=== PATIENT | female | born 1950 | race Caucasian/White ===

== ENCOUNTER 2022-09-22 11:01 | Day surgery (SDC) | payer MEDICARE ==
[2022-09-22] VITALS (7 sets, daily range): BP systolic 112–199; BP diastolic 52–160
[~2022-09-22] VITALS: Ht 162.6 cm; Wt 124.1 kg
[2022-09-22] MEDS ORDERED: LORazepam 0.5 MG tablet PO ONE (11:40)
[2022-09-22] MEDS ORDERED: normal saline 1000ml 1,000 ML IV SCH (11:40)
[2022-09-22] MEDS ORDERED: insulin Lispro (HumaLOG) vial - multi-dose SQ SCH (11:45)
[2022-09-22] MEDS ORDERED: glucagon, human recombinant 1mg kit SUBCUT PRN ×2 (11:45→13:20)
[2022-09-22] MEDS ORDERED: DEXTROSE 15 GM of carb/4 tabs (each vial/BOTTLE has 4 tablets) PO PRN ×4 (11:45→13:20)
[2022-09-22 12:14] LABS: BASOPHILS % (AUTO) 0.3 % (0-1); EOSINOPHILS # (AUTO) 0.3 X10'3 (0-0.9); EOSINOPHILS % (AUTO) 3.7 % (0-6); HEMATOCRIT 39.4 % (35.0-45.0); HEMOGLOBIN 12.9 g/dl (12.0-16.0); LYMPHOCYTES # (AUTO) 1.6 X10'3 (1.1-4.8); LYMPHOCYTES % (AUTO) 16.7 % (21-51); MEAN CORPUSCULAR HEMOGLOBIN 29.2 PG (27.0-31.0); MEAN CORPUSCULAR HGB CONC 32.7 g/dL (33.0-36.5); MEAN CORPUSCULAR VOLUME 89.3 FL (78-98); MEAN PLATELET VOLUME 7.3 FL (7.4-10.4); MONOCYTES # (AUTO) 0.9 X10'3 (0-0.9); MONOCYTES % (AUTO) 9.5 % (2-12); NEUTROPHILS # (AUTO) 6.6 X10'3 (1.8-7.7); NEUTROPHILS % (AUTO) 69.8 % (42-75); PLATELET COUNT 279 X10'3 (140-440); RED BLOOD COUNT 4.41 X10'6 (4.20-5.60); RED CELL DISTRIBUTION WIDTH 17.1 % (11.5-14.5); WHITE BLOOD COUNT 9.5 X10'3 (4.5-11.0)
[2022-09-22 12:28] LABS: ALBUMIN 3.2 G/DL (3.4-5.0); ANION GAP 9 (8-16); BLOOD UREA NITROGEN 26 MG/DL (7-18); BUN/CREATININE RATIO 17.2 (6.6-38.0); CALCIUM 9.6 MG/DL (8.5-10.1); CHLORIDE 105 MMOL/L (99-107); CREATININE 1.51 MG/DL (0.40-0.90); GLUCOSE 76 MG/DL (70-104); POTASSIUM 4.2 MMOL/L (3.5-5.1); SODIUM 142 MMOL/L (135-145); TOTAL CARBON DIOXIDE 28.1 MMOL/L (24-32); eGFR 34 ML/MIN
[2022-09-22 12:30] LABS: APTT 26 SECONDS (22-32)
[2022-09-22] MEDS ORDERED: LIDOcaine 1% 30ml preserv. free vial ONE (12:51)
[2022-09-22] MEDS ORDERED: midazolam 1 mg/ML 2ml injection ONE (12:51)
[2022-09-22] MEDS ORDERED: iohexol 350 MG/ML 50ML vial IV ONE (12:51)
[2022-09-22] MEDS ORDERED: fentaNYL/PF 50MCG/1 ML 2ML syringe ONE (12:51)
[2022-09-22] MEDS ORDERED: EMPA10TA PO (12:55)
[2022-09-22] MEDS ORDERED: GLIP5TAB13 PO ×2 (12:55)
[2022-09-22] MEDS ORDERED: METF-438 PO (12:55)
[2022-09-22] MEDS ORDERED: NPH,100V (12:55)
[2022-09-22] MEDS ORDERED: POTA-82 PO (12:55)
[2022-09-22] MEDS ORDERED: ESCI-8 PO (12:55)
[2022-09-22] MEDS ORDERED: BUME1TAB8 PO (12:55)
[2022-09-22] MEDS ORDERED: SACU1TAB4 PO (12:55)
[2022-09-22] MEDS ORDERED: ATOR20TA66 PO (12:55)
[2022-09-22] MEDS ORDERED: METO100T14 PO (12:55)
[2022-09-22] MEDS ORDERED: CALC600T35 PEG (13:05)
[2022-09-22] MEDS ORDERED: ASPI-1265 PO (13:05)
[2022-09-22] MEDS ORDERED: OMEG100037 PO (13:05)
[2022-09-22] MEDS ORDERED: MULT-1141 PO (13:05)
[2022-09-22] MEDS ORDERED: OMEP20CA16 PO (13:05)
[2022-09-22] MEDS ORDERED: dextrose 50%-water 50ml dispensing syringe IV ONE (13:13)
[2022-09-22] MEDS ORDERED: MESSAGE TO PHARMACY PO ONE (13:20)
[2022-09-22] MEDS ORDERED: dextrose 50%-water 50ml dispensing syringe IV PRN ×2 (13:20)
[2022-09-22] MEDS ORDERED: hydrALAZINE 20mg/ml inj. IV ONE (14:54)
[2022-09-22] MEDS ORDERED: clopidogrel 75mg tablet ONE (15:41)
[2022-09-22] MEDS ORDERED: HYDROcodone/acetaminophen 10/325mg tab PO PRN (16:25)
[2022-09-22] MEDS ORDERED: HYDROcodone/acetaminophen 5mg/325mg tablet PO PRN (16:25)
[2022-09-22 16:43] LABS: ISTAT Hct MIX 42 %PCV (35-45); ISTAT O2 SATURATION MIX VENOUS 61 % (60-80); ISTAT SOURCE VEN
[2022-09-22] MEDS ORDERED: insulin glargine (Lantus) pen - multi-dose SQ SCH (21:00)
== END 2022-09-22 18:00 | disposition home or self-care (01) ==
LOC: SSTAY O 11:01
PROVIDERS: ATTEND Student in an Organized Health Care Education/Training Program
DX: I50.32 Chronic diastolic (congestive) heart failure (principal); I11.0 Hypertensive heart disease with heart failure; E11.9 Type 2 diabetes mellitus without complications; Z88.2 Allergy status to sulfonamides; Z88.8 Allergy status to other drugs, medicaments and biological substances; Z79.82 Long term (current) use of aspirin; Z79.899 Other long term (current) drug therapy; Z98.890 Other specified postprocedural states
CPT/HCPCS: 33289; 36415; 80048; 82803; 82948; 85014; 85025; 85610; 85730; 93005; 99152; 99153; C1751; C1769; C1894; C2624; J0360; J1644; J1815; J2250; J3010; J3490; J7030; Q9967; A4615; A4620; A6258; A6449

== ENCOUNTER 2022-10-20 16:00 | Inpatient (IN) | payer MEDICARE ==
[~2022-10-20] VITALS: Ht 162.6 cm; Wt 116.5 kg
[~2022-10-20 16:00] MED LIST: ASPI-107 PO; ATOR20TA66 PO; BUME1TAB8 PO; CALC600T35 PEG; EMPA10TA PO; ESCI-8 PO; GLIP5TAB13 PO; METF-438 PO; METO100T14 PO; MULT-1141 PO; NPH,100V; OMEG100037 PO; OMEP20CA16 PO; POTA-82 PO; SACU1TAB4 PO
[2022-10-21 01:05] VITALS: BP 136/51
[2022-10-21] MEDS ORDERED: AMIO200T61 PO (01:43)
[2022-10-21] MEDS ORDERED: BUME2TAB7 PO (01:43)
[2022-10-21] MEDS ORDERED: ATOR20TA66 PO (01:43)
[2022-10-21] MEDS ORDERED: APIX5TAB3 PO (01:43)
[2022-10-21] MEDS ORDERED: AMLO2.5T2 PO (01:43)
[2022-10-21] MEDS ORDERED: DAPA10TA PO (01:43)
[2022-10-21] MEDS ORDERED: SACU1TAB7 PO (01:43)
[2022-10-21] MEDS ORDERED: INSU100V9 SQ (01:43)
[2022-10-21] MEDS ORDERED: magnesium 4gm in 100ml NS 100 ML IV PRN (01:45)
[2022-10-21] MEDS ORDERED: dextrose 50%-water 50ml dispensing syringe IV PRN ×2 (01:45)
[2022-10-21] MEDS ORDERED: glucagon, human recombinant 1mg kit SUBCUT PRN (01:45)
[2022-10-21] MEDS ORDERED: potassium Cl 20 mEq SR tablet PO PRN ×2 (01:45)
[2022-10-21] MEDS ORDERED: acetaminophen 325mg tablet PO PRN (01:45)
[2022-10-21] MEDS ORDERED: DEXTROSE 15 GM of carb/4 tabs (each vial/BOTTLE has 4 tablets) PO PRN ×2 (01:45)
[2022-10-21] MEDS ORDERED: docusate sod 100mg capsule PO PRN (01:45)
[2022-10-21] MEDS ORDERED: MESSAGE TO PHARMACY PO ONE (01:45)
[2022-10-21] MEDS ORDERED: ondansetron/PF 4mg/2ml inj IV PRN (01:45)
[2022-10-21] MEDS ORDERED: potassium Cl 40MEQ/1/2NS 520ml 520 ML IV PRN (01:45)
[2022-10-21] MEDS: HYDROcodone/acetaminophen 5mg/325mg tablet PO PRN ×2 (02:41→20:20)
[2022-10-21 06:00] VITALS: BP 143/57
[2022-10-21 06:05] LABS: MAGNESIUM 2.9 MG/DL (1.5-2.4)
--- NOTE | 2022-10-21 06:32 | NUR ---
Patient in room PCU 3028. I have received report from GRACIE ROWE and had the opportunity to ask questions and assume patient care.
[2022-10-21 06:47] LABS: HEMOGLOBIN A1C 6.9 % (4.5-6.2)
[2022-10-21] MEDS: ESCITALOPRAM OXALATE 5 MG TABLET PO SCH (07:52)
[2022-10-21] MEDS: amiodarone 200mg tablet PO SCH (07:52)
[2022-10-21] MEDS: OMEGA-3/DHA/EPA/FISH OIL 1 EACH CAPSULE.DR PO SCH ×2 (07:53→20:16)
[2022-10-21] MEDS: amLODIPine 5mg tablet PO SCH (07:53)
[2022-10-21] MEDS: multivitamins, therapeutics tablet PO SCH (07:54)
[2022-10-21] MEDS: apixaban 5mg tablet PO SCH ×2 (07:54→20:16)
[2022-10-21] MEDS: atorvastatin 20mg tablet PO SCH (07:54)
[2022-10-21] MEDS: aspirin 81mg, enteric-coated 1 TAB TABLET.DR PO SCH (07:54)
[2022-10-21] MEDS: pantoprazole 40mg Tablet.DR PO SCH (07:55)
[2022-10-21] MEDS: K and/or MAG REPLACEMENT MC SCH ×2 (08:00→19:00)
[2022-10-21] MEDS ORDERED: DAPAGLIFLOZIN 10MG TABLET PO SCH (08:00)
[2022-10-21] MEDS: EMPAGLIFLOZIN 10 MG TABLET PO SCH (08:36)
[2022-10-21] MEDS: sacubitril/valsartan 49mg-51mg tablet PO SCH ×2 (08:36→20:16)
[2022-10-21] MEDS: bumetanide 1mg tablet PO SCH ×2 (08:36→20:17)
[2022-10-21 09:32] LABS: BASOPHILS # (AUTO) 0.1 X10'3 (0-0.2); BASOPHILS % (AUTO) 1.2 % (0-1); EOSINOPHILS # (AUTO) 0.3 X10'3 (0-0.9); EOSINOPHILS % (AUTO) 3.8 % (0-6); HEMATOCRIT 34.9 % (35.0-45.0); HEMOGLOBIN 11.2 g/dl (12.0-16.0); LYMPHOCYTES # (AUTO) 1.8 X10'3 (1.1-4.8); LYMPHOCYTES % (AUTO) 19.9 % (21-51); MEAN CORPUSCULAR HGB CONC 32.1 g/dL (33.0-36.5); MEAN CORPUSCULAR VOLUME 90.3 FL (78-98); MEAN PLATELET VOLUME 8.1 FL (7.4-10.4); MONOCYTES # (AUTO) 1.2 X10'3 (0-0.9); MONOCYTES % (AUTO) 13.7 % (2-12); NEUTROPHILS # (AUTO) 5.5 X10'3 (1.8-7.7); NEUTROPHILS % (AUTO) 61.4 % (42-75); PLATELET COUNT 321 X10'3 (140-440); RED BLOOD COUNT 3.86 X10'6 (4.20-5.60); RED CELL DISTRIBUTION WIDTH 17.7 % (11.5-14.5); WHITE BLOOD COUNT 8.9 X10'3 (4.5-11.0)
--- NOTE | 2022-10-21 09:37 | NUR ---
DM consult: Per EMR pt with T2DM, well controlled with A1c 6.9% and BG 136 mg/dL on admit. DM education not warranted at this time. Will continue to follow. Addendum: 10/21/22 at [address] Amended: Links added.
[2022-10-21 09:51] LABS: ALANINE AMINOTRANSFERASE 13 U/L (12-78); ALBUMIN 3.4 G/DL (3.4-5.0); ALBUMIN/GLOBULIN RATIO 0.7 (1.1-1.5); ALKALINE PHOSPHATASE 77 IU/L (46-116); ANION GAP 12 (8-16); ASPARTATE AMINO TRANSFERASE 13 U/L (10-37); BILIRUBIN,TOTAL 0.8 MG/DL (0.1-1.0); BLOOD UREA NITROGEN 69 MG/DL (7-18); BUN/CREATININE RATIO 21.8 (6.6-38.0); CALCIUM 10.1 MG/DL (8.5-10.1); CHLORIDE 97 MMOL/L (99-107); CREATININE 3.16 MG/DL (0.40-0.90); GLUCOSE 146 MG/DL (70-104); POTASSIUM 4.7 MMOL/L (3.5-5.1); SODIUM 137 MMOL/L (135-145); TOTAL CARBON DIOXIDE 28.1 MMOL/L (24-32); TOTAL PROTEIN 8.4 G/DL (6.4-8.2); eGFR 15 ML/MIN
[2022-10-21 10:00] VITALS: BP 140/46
[2022-10-21 14:00] VITALS: BP 136/48
[2022-10-21 18:00] VITALS: BP 140/53
--- NOTE | 2022-10-21 18:14 | NUR ---
Problems reprioritized. Patient report given, questions answered & plan of care reviewed with Patricia ROWE.
[2022-10-21] MEDS: insulin Lispro (HumaLOG) vial - multi-dose SQ SCH (18:59)
[2022-10-21] MEDS ORDERED: enoxaparin 40mg/0.4ml syringe SQ SCH (20:00)
[2022-10-21] MEDS ORDERED: insulin glargine (Lantus) pen - multi-dose SQ SCH (21:00)
--- NOTE | 2022-10-21 21:53 | NUR ---
Charting by Sharon JI reviewed by Livia Juan RN
[2022-10-21 22:49] VITALS: BP 145/62
[2022-10-22 02:00] VITALS: BP 95/53
[2022-10-22 06:00] VITALS: BP 134/45
[2022-10-22 06:11] LABS: EOSINOPHILS # (AUTO) 0.5 X10'3 (0-0.9); WHITE BLOOD COUNT 7.8 X10'3 (4.5-11.0)
[2022-10-22 06:13] LABS: BASOPHILS # (AUTO) 0.1 X10'3 (0-0.2); BASOPHILS % (AUTO) 1.4 % (0-1); EOSINOPHILS % (AUTO) 6.3 % (0-6); LYMPHOCYTES # (AUTO) 1.8 X10'3 (1.1-4.8); MEAN CORPUSCULAR HEMOGLOBIN 29.9 PG (27.0-31.0); MEAN CORPUSCULAR HGB CONC 33.4 g/dL (33.0-36.5); MEAN CORPUSCULAR VOLUME 89.5 FL (78-98); MEAN PLATELET VOLUME 8.2 FL (7.4-10.4); MONOCYTES % (AUTO) 12.3 % (2-12); NEUTROPHILS # (AUTO) 4.5 X10'3 (1.8-7.7); PLATELET COUNT 339 X10'3 (140-440); RED BLOOD COUNT 3.69 X10'6 (4.20-5.60); RED CELL DISTRIBUTION WIDTH 17.5 % (11.5-14.5)
--- NOTE | 2022-10-22 06:15 | NUR ---
Patient in room PCU 3028. I have received report from Patricia ROWE and had the opportunity to ask questions and assume patient care.
[2022-10-22 07:32] LABS: ALANINE AMINOTRANSFERASE 16 U/L (12-78); ALBUMIN 3.3 G/DL (3.4-5.0); ALBUMIN/GLOBULIN RATIO 0.6 (1.1-1.5); ALKALINE PHOSPHATASE 75 IU/L (46-116); ANION GAP 13 (8-16); ASPARTATE AMINO TRANSFERASE 15 U/L (10-37); BILIRUBIN,TOTAL 0.7 MG/DL (0.1-1.0); BLOOD UREA NITROGEN 70 MG/DL (7-18); BUN/CREATININE RATIO 22.5 (6.6-38.0); CALCIUM 9.7 MG/DL (8.5-10.1); CHLORIDE 97 MMOL/L (99-107); CREATININE 3.11 MG/DL (0.40-0.90); GLUCOSE 152 MG/DL (70-104); MAGNESIUM 2.8 MG/DL (1.5-2.4); POTASSIUM 4.8 MMOL/L (3.5-5.1); SODIUM 137 MMOL/L (135-145); TOTAL CARBON DIOXIDE 27.1 MMOL/L (24-32); TOTAL PROTEIN 8.4 G/DL (6.4-8.2); eGFR 15 ML/MIN
[2022-10-22] MEDS: K and/or MAG REPLACEMENT MC SCH (08:00)
[2022-10-22] MEDS: insulin Lispro (HumaLOG) vial - multi-dose SQ SCH ×2 (08:16→13:39)
[2022-10-22] MEDS: sacubitril/valsartan 49mg-51mg tablet PO SCH (08:18)
[2022-10-22] MEDS: multivitamins, therapeutics tablet PO SCH (08:18)
[2022-10-22] MEDS: atorvastatin 20mg tablet PO SCH (08:18)
[2022-10-22] MEDS: EMPAGLIFLOZIN 10 MG TABLET PO SCH (08:18)
[2022-10-22] MEDS: amiodarone 200mg tablet PO SCH (08:18)
[2022-10-22] MEDS: ESCITALOPRAM OXALATE 5 MG TABLET PO SCH (08:18)
[2022-10-22] MEDS: OMEGA-3/DHA/EPA/FISH OIL 1 EACH CAPSULE.DR PO SCH (08:18)
[2022-10-22] MEDS: bumetanide 1mg tablet PO SCH (08:18)
[2022-10-22] MEDS: apixaban 5mg tablet PO SCH (08:18)
[2022-10-22] MEDS: amLODIPine 5mg tablet PO SCH (08:19)
[2022-10-22] MEDS: aspirin 81mg, enteric-coated 1 TAB TABLET.DR PO SCH (08:19)
[2022-10-22] MEDS: pantoprazole 40mg Tablet.DR PO SCH (08:19)
[2022-10-22 10:00] VITALS: BP 127/55
[2022-10-22 14:00] VITALS: BP 122/42
--- NOTE | 2022-10-22 14:07 | NUR ---
Report called to receiving nurse Crystal at [facility]. All questions and concerns answered.
--- NOTE | 2022-10-22 15:43 | NUR ---
Pt PIV discontinued to prepare for DC, no complaints of pain or discomfort during removal. [place] removed intact with no s/s of infection or infiltration.
--- NOTE | 2022-10-22 16:15 | NUR ---
Pt discharged to [facility] via [facility]. VSS upon discharge, alert and oriented. [facility] and family.
== END 2022-10-22 16:24 | DRG 291 ==
LOC: UNDOADMIN 16:00 → PCU 3S 16:00
PROVIDERS: ADMIT Family Medicine; ATTEND Internal Medicine
DX: I11.0 Hypertensive heart disease with heart failure (principal); I50.33 Acute on chronic diastolic (congestive) heart failure; N17.9 Acute kidney failure, unspecified; J96.10 Chronic respiratory failure, unspecified whether with hypoxia or hypercapnia; I27.20 Pulmonary hypertension, unspecified; Z20.822 Contact with and (suspected) exposure to COVID-19; I07.1 Rheumatic tricuspid insufficiency; E11.9 Type 2 diabetes mellitus without complications; E78.5 Hyperlipidemia, unspecified; G47.33 Obstructive sleep apnea (adult) (pediatric); R00.1 Bradycardia, unspecified; I48.0 Paroxysmal atrial fibrillation; K21.9 Gastro-esophageal reflux disease without esophagitis; Z79.01 Long term (current) use of anticoagulants; Z79.84 Long term (current) use of oral hypoglycemic drugs; Z79.899 Other long term (current) drug therapy; Z87.442 Personal history of urinary calculi; Z88.2 Allergy status to sulfonamides; Z88.8 Allergy status to other drugs, medicaments and biological substances
CPT/HCPCS: 36415; 80053; 82948; 83036; 83735; 85025; 87081; 87811; 93308; 97116; 97161; A6213; G0378; J1650; J1815